=== PATIENT | male | born 1980 | race Caucasian/White ===

== ENCOUNTER → 2018-05-18 14:32 | Outpatient (CLI) | payer OTHER, SELFPAY ==
--- NOTE | 2018-05-18 14:38 | XR_ITS ---
XR shoulder RT min 2V COMPARISON: Right shoulder 08/23/2016 HISTORY: Right shoulder pain after injury at work TECHNIQUE: 3 views right shoulder FINDINGS: The clavicle is intact and the AC joint appears normal. There is minor spurring of the inferior lip of the glenoid and there is mild narrowing of the gallbladder humeral joint. There are no soft tissue calcifications. IMPRESSION: Stable mild osteoarthritic changes of the glenohumeral joint, no significant change from the previous exam July 2016
== END ==
PROVIDERS: PCP Internal Medicine; Visit Provider Internal Medicine
DX: M25.511 Pain in right shoulder (principal)
CPT/HCPCS: 73030

== ENCOUNTER → 2018-05-27 14:42 | Outpatient (CLI) | payer OTHER, SELFPAY ==
--- NOTE | 2018-05-27 14:46 | MR_ITS ---
MR shoulder RT wo con HISTORY: Severe right shoulder pain with limited range of motion ITS.REASON: ABDUCTION OF RIGHT SHOULDER, PAIN ORDERING PHYSICIAN: Richard Love PATIENT AGE: 38 years Comparison: 05/18/2018 TECHNIQUE: Standard multiplanar multiecho sequences are performed without contrast. FINDINGS: Hypertrophic changes are present involving the acromioclavicular joint with edematous changes at the AC joint. The subacromial space is preserved at 7 mm. There is slight increased T2 signal involving the distal aspect of the supraspinatus tendon consistent with tendinopathy/tendinosis. Slight increased T2 signal involving the infraspinatus tendon consistent with tendinopathy/tendinosis. No evidence of rotator cuff tear. The subscapularis and teres minor tendons are intact. No obvious labral tear. Bicipital tendon is in place. No fracture. No significant effusion. IMPRESSION: 1. Acromioclavicular arthropathy with bone marrow edema changes at the AC joint 2. Tendinopathy/tendinosis of the supraspinatus tendon. 3. No evidence of rotator cuff tear or labral tear.
== END ==
PROVIDERS: Family Provider Internal Medicine; PCP Internal Medicine; Visit Provider Internal Medicine
DX: M24.511 Contracture, right shoulder (principal); M25.511 Pain in right shoulder; M25.411 Effusion, right shoulder
CPT/HCPCS: 73221

== ENCOUNTER → 2018-06-11 11:06 | Outpatient (CLI) | payer OTHER, SELFPAY ==
[2018-06-11 11:42] VITALS: PULSE 75
--- NOTE | 2018-06-11 11:57 | XR_ITS ---
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 No CHF. There is coarsening of the bronchovascular markings with mild prominence of the interstitium which may be related to smoking-related lung disease. No lobar consolidation or collapse. No acute bony anomalies. Clips are present in the thyroid region. IMPRESSION: Coarsening of the bronchovascular markings with mild prominence of the interstitium which may be related to smoking-related lung disease with cardiac size upper limits of normal
== END ==
PROVIDERS: Family Provider Internal Medicine; PCP Internal Medicine; Visit Provider Physician Assistant
DX: J45.909 Unspecified asthma, uncomplicated (principal); F17.200 Nicotine dependence, unspecified, uncomplicated; Z02.4 Encounter for examination for driving license
CPT/HCPCS: 71046; 94060; 94640

== ENCOUNTER 2018-06-15 07:00 | Outpatient (RCR) | payer OTHER, SELFPAY ==
--- NOTE | 2018-06-05 11:10 | HMH.OTOPEV ---
OT Inpatient Evaluation Rehab OT Outpatient Eval Start: 06/05/18 09:59 Freq: Status: Active Protocol: Document 06/05/18 09:59 TFRY (Rec: 06/05/18 10:52 TFRY [id number]) Electronically Signed By Yennifer Bates OT 06/05/18 09:59 Outpatient Therapy Subjective History Subjective History THIS IS A 38 YEAR OLD RIGHT HANDED MALE REFERRED TO OCCUPATIONAL THERAPY FOR RIGHT SHOULDER TENDONITIS AND AC ARTHROPATHY. PATIENT REPORTS HURTING HIS SHOULDER ON MAY 14, 2018 WHEN PUTTING UP SWING SET. HE WAS THEN SEEN BY DR SHRESTHA ON 06/01/18/ Chief Complaint Pain Symptom Type Ache Sharp Tingling Symptoms Relieved By Rest/Positioning Symptoms Aggravated By Physical Activity Prior Functional Limitations None Current Functional Limitations Lifting Level of pain today (0-10) 2 Pain scale - at its best (0-10) 0 Pain scale - at its worst (0-10) 6 Shoulder/Elbow Eval Shoulder Objective Measurements Palpation Tenderness tenderness shoulder exam standard right tenderness over the bicipital tendon right shoulder exam standard Shoulder Palpation Findings Tenderness Shoulder ROM Right Shoulder ROM Limitations Pain Shoulder Abduction Active Range of 120 Motion (degrees) Shoulder Abduction Passive Range of 140 Motion (degrees) Shoulder Flexion Active Range of Motion 135 (degrees) Query Text: Shoulder Flexion Passive Range of Motion 150 (degrees) Shoulder External Rotation Active Range 80 of Motion (degrees) Shoulder External Rotation Passive Range 80 of Motion (degrees) Shoulder Internal Rotation Active Range 75 of Motion (degrees) Shoulder Internal Rotation Passive Range 75 of Motion (degrees) pain with active ROM shoulder exam right standard pain with passive ROM shoulder exam right standard decreased ROM shoulder exam standard right Shoulder MMT Shoulder Abduction Strength Grade 3- Fair- Shoulder Flexion Strength Grade 3- Fair- Shoulder Horizontal Abduction Strength 3- Fair- Grade Shoulder Horizontal Adduction Strength 3- Fair- Grade Shoulder External Rotation Strength 3 Fair Grade Shoulder Internal Rotation Strength 3 Fair Grade Shoulder Strength Patient Testing Sitting
== END 2018-07-15 11:33 | disposition home or self-care (01) ==
LOC: OT 07:00
PROVIDERS: Family Provider Internal Medicine; PCP Internal Medicine; Visit Provider Internal Medicine
DX: M75.21 Bicipital tendinitis, right shoulder (principal); M19.011 Primary osteoarthritis, right shoulder
CPT/HCPCS: 97014; 97033; 97110; 97165; G0283

== ENCOUNTER → 2018-10-14 15:16 | Outpatient (CLI) | payer OTHER, SELFPAY | PROVIDERS: PCP Internal Medicine; Visit Provider Internal Medicine | DX: R07.9 Chest pain, unspecified (principal) | CPT/HCPCS: 93005 ==

== ENCOUNTER → 2019-05-10 10:22 | Outpatient (CLI) | payer OTHER, SELFPAY ==
--- NOTE | 2019-05-10 10:29 | XR_ITS ---
XR knee RT 3V HISTORY: ITS.REASON: RT KNEE PAIN ORDERING PHYSICIAN: Richard Love PATIENT AGE: 39 years COMPARISON: 07/22/2008 FINDINGS: There are minimal osteoarthritic changes of the medial compartment. A faint lucency is noted along the lateral tibial plateau laterally which could be due to small osteochondral defect. Otherwise negative. IMPRESSION: Minimal osteoarthritis with possible small osteochondral defect of the lateral tibial plateau
== END ==
PROVIDERS: PCP Internal Medicine; Visit Provider Internal Medicine
DX: M25.561 Pain in right knee (principal)
CPT/HCPCS: 73562

== ENCOUNTER → 2019-05-13 12:46 | Outpatient (CLI) | payer OTHER, SELFPAY ==
--- NOTE | 2019-05-13 12:54 | MR_ITS ---
MR knee RT wo con HISTORY: Medial right knee pain and swelling. Possible osteochondral defect on the radiograph ITS.REASON: RIGHT KNEE PAIN ORDERING PHYSICIAN: Richard Love PATIENT AGE: 39 years Comparison: 05/10/2019 TECHNIQUE: Standard multiplanar multiecho sequences are performed without contrast. FINDINGS: The cruciate ligaments are intact. The collateral ligaments are intact. There may be some minimal edema of the medial collateral ligament centrally. The patellar tendon and quadriceps tendon appear intact. There is a complex tear of the posterior horn of the medial meniscus with both a longitudinal and horizontal component. There is a small amount of fluid signal posterior to the horizontal component representing a small meniscal cyst which measures 3 mm. In addition, there is a longitudinal tear involving the anterior horn of the lateral meniscus toward the central aspect of the meniscus.. This is just lateral to the transverse ligament. There is a small knee joint effusion. The patellar cartilage is well preserved. No obvious fracture. IMPRESSION: 1. Complex tear of the posterior horn the medial meniscus. 2. Longitudinal tear of the anterior horn of lateral meniscus
== END ==
PROVIDERS: PCP Internal Medicine; Visit Provider Internal Medicine
DX: M95.8 Other specified acquired deformities of musculoskeletal system (principal)
CPT/HCPCS: 73721

== ENCOUNTER 2019-05-25 14:57 | Outpatient (RCR) | payer OTHER, SELFPAY | END 2019-05-25 15:15 | disposition home or self-care (01) | LOC: PT 14:57 | PROVIDERS: Visit Provider Orthopaedic Surgery | DX: M25.561 Pain in right knee (principal); M25.461 Effusion, right knee | CPT/HCPCS: 97760 ==

== ENCOUNTER → 2019-08-18 09:07 | Outpatient (CLI) | payer BC, SELFPAY ==
--- NOTE | 2019-08-18 09:17 | XR_ITS ---
PROCEDURE: XR CHEST 2V CLINICAL HISTORY: H/O TOBACCO USE COMPARISON: CXR2V XR chest 2V from 06/11/2018 FINDINGS: There is mild prominence of the left hilum. This may be related to vascularity. Normal heart size. No lobar consolidation or collapse. No acute bony anomaly. IMPRESSION: Slight prominence of the left hilum possibly due to overlying vasculature. Consider follow-up to confirm stability Dictated by: Vinny Ndiaye MD 08/18/2019 11:59 Electronically signed by Vinny Ndiaye MD in [place] 08/18/2019 11:59
[2019-08-18 09:42] LABS: Basophils # 0.1 K/mm3 (0-0.2); Basophils % 0.5 % (0.1-2.0); Eosinophils # 0.2 K/mm3 (0.0-0.4); Eosinophils % 2.2 % (0.1-12.0); Hemoglobin 15.9 g/dL (14.1-18.0); Lymphocytes # 2.8 K/mm3 (0.7-4.5); Lymphocytes % 31.4 % (10-50); Mean Corpuscular HGB Conc 31.8 g/dL (31.8-35.4); Mean Corpuscular Hemoglobin 32.4 pg (27.0-31.2); Mean Corpuscular Volume 101.9 fl (80-94); Mean Platelet Volume 8.4 fl (7.4-10.4); Monocytes # 0.4 K/mm3 (0.1-1.0); Monocytes % 4.3 % (1.7-9.3); Neutrophils # 5.6 K/mm3 (1.8-7.8); Neutrophils % 61.5 % (37.0-80.0); Platelet Count 224 K/mm3 (142-424); Red Blood Count 4.91 M/mm3 (4.60-6.20); White Blood Count 9.1 K/mm3 (4.8-10.8)
[2019-08-18 10:09] LABS: Anion Gap 10.3 mEq/L (5-15); Blood Urea Nitrogen 7 mg/dL (7-18); Calcium 9.1 mg/dL (8.5-10.1); Carbon Dioxide 29 mmol/L (21.0-32.0); Chloride 103 mmol/L (98-107); Creatinine,Serum 1.12 mg/dL (0.70-1.30); Estimated Glomerular Filt Rate 73 ml/min (>60); GFR (African American) 89 ML/MIN (>60); Glucose 120 mg/dL (74-106); Potassium 4.3 mmoL/L (3.5-5.1); Sodium 138 mmol/L (136-145)
== END ==
PROVIDERS: Visit Provider Orthopaedic Surgery
DX: Z01.818 Encounter for other preprocedural examination (principal); S83.242A Other tear of medial meniscus, current injury, left knee, initial encounter; S83.282A Other tear of lateral meniscus, current injury, left knee, initial encounter
CPT/HCPCS: 36415; 71046; 80048; 85025

== ENCOUNTER → 2020-07-10 10:42 | Outpatient (CLI) | payer SELFPAY ==
--- NOTE | 2020-07-10 10:47 | CT_ITS ---
PROCEDURE: CT HEART W CALCIUM SCORE CLINICAL HISTORY: SCREENING COMPARISON: No exams were available for comparison TECHNIQUE: Axial images obtained with sagittal and coronal reformats. All CT scans at the facility use one or more dose reduction, viz: automated exposure control, ma/kV adjustment per patient size (including targeted exams where dose is matched to indication, i.e. head), or iterative reconstruction technique. FINDINGS: The coronary artery calcium score is 0. No identifiable calcific atherosclerotic plaque with very low cardiovascular disease risk Incidental note is made of gynecomastia IMPRESSION: No identifiable calcific atherosclerotic plaque with very low cardiovascular disease risk Dictated by: Vinny Ndiaye MD 07/10/2020 16:27 Vinny Ndiaye MD in [place] 07/10/2020 16:27
== END ==
PROVIDERS: PCP Internal Medicine; Visit Provider Internal Medicine Cardiovascular Disease
DX: F17.210 Nicotine dependence, cigarettes, uncomplicated (principal)
CPT/HCPCS: 75571

== ENCOUNTER → 2020-07-11 06:26 | Outpatient (CLI) | payer BC, SELFPAY ==
--- NOTE | 2020-07-11 06:26 | NM_ITS ---
APPROVED REPORT Exam: Nuclear Stress Test Indication: Chest pain, SOB, Abnormal EKG, High cholesterol, Tobacco use, Family history Patient Location: Outpatient Stress Tech: Destini Llanes PR Tech:Jania Sims, ARRT, RT (R)(N) Ht: 6 ft 4 in Wt: 215 lbs HR: 58 bpm BP: 118/79 mmHg BSA: 2.28 m2 BMI: 26.1 History: Chest pain, SOB, Abnormal EKG, High cholesterol, Tobacco use, Family history Procedure: Patient exercised on Celestine protocol 11:45 minutes and sec, resting heart rate 58 bpm, resting blood pressure 118/79 mmHg, with exercise maximum heart rate achived was 155 bpm which is 86 % of the maximum predicted heart rate and blood pressure was 164/86 mmHg. Test was stopped due to SOA, fatigue and knee pain. Patient has good exercise capacity, achieved 12.8 METs of workload on treadmill, the blood pressure response to exercise was Adequate. Electrocardiogram Resting electrocardiogram showed sinus rhythm, with exercise there is less than 1.[address] segment depression noted from the baseline EKG. The EKG portion of the exercise Myoview is negative for ischemia. Cardiac Stress and Resting SPECT Images: Cardiac Stress and Resting SPECT images were obtained using technetium 99m Myoview 32.4 mCi stress and 10.60 mCi at rest. Gated SPECT for analysis of segmental wall motion and calculation of the ejection fraction also done. Cardiac stress and resting SPECT images show uniform myocardial activity without segmental perfusion abnormality, computer derived ejection fraction is 50% with no regional wall motion abnormality, right ventricle is normal size and contractility. Conclusion: 1. The EKG portion of the exercise Myoview is negative for ischemia. Patient has good exercise capacity achieved 12.8 mets of workload on treadmill, the blood pressure response to exercise was adequate, there was no exercise-induced chest discomfort. 2. No scintigraphic evidence of reversible ischemia seen, computer derived ejection fraction is 50% with no regional wall motion abnormality, right ventricle is normal size and contractility. 3. Normal exercise Myoview study. Electronically signed by : Eulalio Mathur, 07/11/2020 19:32:15
--- NOTE | 2020-07-11 06:26 | CA_ITS ---
APPROVED REPORT Exam: Exercise Treadmill Technologist: Chelita Quintanilla, Ht: 5 ft 4 in Wt: 215 lbs BSA: 2.02 m2 HR: 58 bpm BP: 118/79 mmHg Indications: Abnormal ekg, Shortness of Air Medical History Medications: Levothyroxine,,,,, TorVASTATIN,,,,, Omepazole,,,,, Aspirn,,,,, Stress Test Details Test: Celestine HR Resting HR: 65 bpm Max Heart Rate (APMHR): 181 bpm Max HR Achieved: 155 bpm Target HR (85% APMHR): 153 bpm % of APMHR: 85 Recovery HR: 88 bpm BP Resting BP: 128/79 mmHg Max BP: 164/86 mmHg Recovery BP: 127.0/84.0 mmHg ECG Clinical Exercise duration: 11:45 min Highest Stage Achieved: Exercise capacity: 12.8 METs Stress ECG Conclusion Resting EKG: Sinus urbano, otherwise normal Max HR: 155, % of PM: 86%, Max BP: 164/86, MET's: 12.8, Test stopped due to: SOA, Fatigue, knee pain Symptoms: No change in pretest Chest Pain with exercise Arrhythmias/Ectopy: Rare fusion beat ST-T Changes: Normal ST response to exercise Conclussion: Normal GXT, Myoview images reported separately Test Summary RECOVERY 04:00 0.0 0.0 90 . 131/ 88 . . Stage 1 01:00 10.0 1.7 97 . . . . Stage 1 02:00 10.0 1.7 94 . . . . Stage 1 03:00 10.0 1.7 92 . 134/ 82 . . Stage 2 01:00 12.0 2.5 106 . . . . Stage 2 02:00 12.0 2.5 103 . . . . Stage 2 03:00 12.0 2.5 105 . 146/ 80 . . Stage 3 01:00 14.0 3.4 117 . . . . Stage 3 02:00 14.0 3.4 123 . . . . Stage 3 03:00 14.0 3.4 123 . 164/ 86 . . Stage 4 01:00 16.0 4.2 143 . . . . Stage 4 . . . . . . . Myoview Injected Stage 4 02:00 16.0 4.2 150 . . . . Stage 4 02:45 16.0 4.2 154 . . . Stop exercise at 11:45 RECOVERY 01:00 0.0 0.0 121 . . . . RECOVERY 02:00 0.0 0.0 108 . 130/ 72 . . RECOVERY 03:00 0.0 0.0 98 . 131/ 88 . . RECOVERY 04:00 0.0 0.0 90 . 131/ 88 . . RECOVERY 05:00 0.0 0.0 95 . 127/ 84 . . RECOVERY 05:18 0.0 0.0 89 . 127/ 84 . . Electronically signed by : Eulalio Mathur, 07/11/2020 19:29:36
--- NOTE | 2020-07-11 06:26 | CA_ITS ---
APPROVED REPORT EXAM: Comprehensive 2D, Doppler, and color-flow Echocardiogram Project Management Instructor: Sadaf Poon RDCS Ht: 6 ft 4 in Wt: 215lbs BSA: 2.28 BP: 124/82 mmHg Indications: ABN EKG,SOA SMOKER CP 2D Dimensions LVOT 2.30 cm (M/F) 1.5-2.5 M-Mode Dimensions RVDd 2.59 cm (0.9-2.6) LVDd 6.00 cm (3.5-5.7) LVDs 4.72 cm (3.5-5.7) IVSd 0.67 cm (0.6-1.1) PWd 0.60 cm (0.6-1.1) EF (Teich) 42.60% FS 21.30% EDV (Teich) 180.00 mL ESV (Teich) 103.40 mL LV Diastology E/A Ratio 1.11 Mitral Valve MV A Velocity 44.00 (40-130 cm/s) Left Ventricle Left atrium is normal size, left ventricle is normal size, there is no concentric left ventricular hypertrophy, visually estimated ejection fraction 55% with no regional wall motion abnormality, diastolic parameters are within normal range. Right Ventricle Right atrium and right ventricle are normal size and contractility. Aortic Valve Aortic valve is minimally thickened and fibrosed, there is no aortic stenosis or aortic insufficiency. Mitral Valve Mitral valve is grossly normal, there is mild mitral regurgitation. Tricuspid Valve Tricuspid valve grossly normal, there is mild tricuspid regurgitation, tricuspid regurgitation jet velocity is inadequate for calculation of the right ventricular systolic pressure. Pulmonic Valve Pulmonic valve is poorly visualized. Great Vessels Aortic root is normal size. Pericardium No significant pericardial effusion noted. Conclusion 1. Normal left ventricular size, preserved left ventricular systolic function, visually estimated ejection fraction 55% with no regional wall motion abnormality, diastolic parameters are within normal range. 2. Mild mitral and tricuspid regurgitation. 3. No significant pericardial effusion noted. Electronically signed by : Eulalio Mathur, 07/11/2020 19:16:08
--- NOTE | 2020-07-11 08:27 | HMH.ITSHM ---
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 []ATORVASTATIN LEVOTHYROXINE ASA OMEPRAZOLE
== END ==
PROVIDERS: PCP Internal Medicine; Visit Provider Internal Medicine Cardiovascular Disease
DX: R07.89 Other chest pain (principal); R06.00 Dyspnea, unspecified; R94.31 Abnormal electrocardiogram [ECG] [EKG]; F17.200 Nicotine dependence, unspecified, uncomplicated; Z82.49 Family history of ischemic heart disease and other diseases of the circulatory system
CPT/HCPCS: 78452; 93017; 93306; A9502

== ENCOUNTER → 2021-08-20 10:04 | Outpatient (CLI) | payer BC, SELFPAY ==
--- NOTE | 2021-08-20 10:08 | XR_ITS ---
PROCEDURE: XR CHEST 2V CLINICAL HISTORY: RT MEDIAL CHEST PAIN, COUGH, S/P COVID-19 () COMPARISON: CR CXR2V XR chest 2V from 06/11/2018 DX XR CHEST 2V from 08/18/2019 FINDINGS: Cardiomediastinal silhouette is not enlarged. Left hilum appears stable from prior study. There are vascular clips in the lower neck. The lungs are clear. No pleural effusions. No acute bony abnormalities. IMPRESSION: Stable chest radiograph. Dictated by: Naomie Culver 08/20/2021 11:21 Naomie Culver in [place] 08/20/2021 11:21
== END ==
PROVIDERS: PCP Internal Medicine; Visit Provider Internal Medicine
DX: R07.89 Other chest pain (principal); R05.9 Cough, unspecified; Z86.16 Personal history of COVID-19
CPT/HCPCS: 71046

== ENCOUNTER → 2022-03-20 10:42 | Outpatient (CLI) | payer BC, SELFPAY ==
--- NOTE | 2022-03-20 10:46 | CT_ITS ---
PROCEDURE INFORMATION: Exam: CT Lumbar Spine Without Contrast Exam date and time: 03/20/2022 10:49 AM Age: 41 years old Clinical indication: Low back pain; Additional info: Acute myosascial strain lumbar TECHNIQUE: Imaging protocol: Computed tomography images of the lumbar spine without contrast. Radiation optimization: All CT scans at this facility use at least one of these dose optimization techniques: automated exposure control; mA and/or kV adjustment per patient size (includes targeted exams where dose is matched to clinical indication); or iterative reconstruction. COMPARISON: No relevant prior studies available. FINDINGS: Vertebrae: Mild multilevel spondylosis. Visualized vertebral body heights maintained. Discs/Spinal canal/Neural foramina: Mild disc bulge at L4-L5 and L5-S1. Disc bulge and thickening of the ligamentum flavum at L4-L5 likely causes mild central spinal stenosis. Intraspinal contents are otherwise poorly evaluated. No evidence of high-grade central spinal stenosis. Sacrum/coccyx: Mild arthritic changes of the SI joints, greater on the left. Vasculature: Mild vascular calcifications. Soft tissues: Unremarkable. IMPRESSION: No evidence of an acute fracture or traumatic subluxation.
== END ==
PROVIDERS: PCP Internal Medicine; Visit Provider Internal Medicine
DX: S39.012A Strain of muscle, fascia and tendon of lower back, initial encounter (principal); R20.2 Paresthesia of skin
CPT/HCPCS: 72131

== ENCOUNTER → 2023-01-03 16:56 | Outpatient (CLI) | payer OTHER, SELFPAY ==
[2023-01-03 18:49] LABS: Basophils # 0.1 K/mm3 (0-0.2); Eosinophils # 0.2 K/mm3 (0.0-0.4); Eosinophils % 2.6 % (0.1-12.0); Hematocrit 48.7 % (42.0-52.0); Hemoglobin 16.1 g/dL (14.1-18.0); Lymphocytes # 3.2 K/mm3 (0.7-4.5); Lymphocytes % 35.9 % (10-50); Mean Corpuscular HGB Conc 33.1 g/dL (31.8-35.4); Mean Corpuscular Hemoglobin 31.7 pg (27.0-31.2); Mean Corpuscular Volume 95.8 fl (80-94); Mean Platelet Volume 9.3 fl (7.4-10.4); Monocytes # 0.6 K/mm3 (0.1-1.0); Monocytes % 7.1 % (1.7-9.3); Neutrophils # 4.8 K/mm3 (1.8-7.8); Neutrophils % 53.4 % (37.0-80.0); Platelet Count 263 K/mm3 (142-424); Red Blood Count 5.08 M/mm3 (4.60-6.20); Red Cell Distribution Width 13.4 % (11.5-17.5)
[2023-01-03 19:45] LABS: Chloride 103 mmol/L (98-107); Potassium 4.6 mmoL/L (3.5-5.1); Sodium 136 mmol/L (136-145)
[2023-01-03 19:47] LABS: Alanine Aminotransferase 41 U/L (12-78); Aspartate Amino Transferase 31 U/L (17-59); Blood Urea Nitrogen 11 mg/dl (9-20); Estimated Glomerular Filt Rate 82 ml/min (>60); GFR (African American) 100 ML/MIN (>60)
[2023-01-03 19:48] LABS: Albumin/Globulin Ratio 1.5 (1.1-1.8); Alkaline Phosphatase 100 U/L (38-126); Anion Gap 11.6 mEq/L (5-15); Bilirubin,Total 0.2 mg/dl (0.2-1.3); Calcium 8.6 mg/dl (8.4-10.2); Carbon Dioxide 26 mmol/L (22.0-30.0); Chol/HDL Ratio 5.2 (1-3.5); Cholesterol 176 mg/dl (140-200); Globulin 2.6 g/dL (1.3-3.2); Glucose 81 mg/dl (74-100); HDL Cholesterol 34 mg/dl (40-60); Total Protein,Serum 6.6 g/dl (6.3-8.2); Triglycerides 321 mg/dl (30-150); VLDL Cholesterol 64 mg/dL (0-40)
[2023-01-03 19:59] LABS: Direct LDL Cholesterol 110.34 mg/dL (100-129)
[2023-01-03 20:02] LABS: Free T4 (Free Thyroxine) 1.75 ng/dl (0.78-2.19)
[2023-01-03 20:17] LABS: Thyroid Stimulating Hormone 0.96 uIU/mL (0.465-4.68)
== END ==
PROVIDERS: PCP Internal Medicine; Visit Provider Internal Medicine
DX: E03.9 Hypothyroidism, unspecified (principal); E05.00 Thyrotoxicosis with diffuse goiter without thyrotoxic crisis or storm; E78.5 Hyperlipidemia, unspecified; Z86.39 Personal history of other endocrine, nutritional and metabolic disease
CPT/HCPCS: 80053; 80061; 84439; 84443; 85025

== ENCOUNTER → 2023-03-10 17:01 | Outpatient (CLI) | payer OTHER, SELFPAY ==
[2023-03-10 18:05] LABS: Basophils % 0.5 % (0.1-2.0); Eosinophils # 0.3 K/mm3 (0.0-0.4); Eosinophils % 3.4 % (0.1-12.0); Hematocrit 46.8 % (42.0-52.0); Hemoglobin 15.7 g/dL (14.1-18.0); Lymphocytes # 2.9 K/mm3 (0.7-4.5); Lymphocytes % 35.6 % (10-50); Mean Corpuscular HGB Conc 33.6 g/dL (31.8-35.4); Mean Corpuscular Hemoglobin 31.1 pg (27.0-31.2); Mean Corpuscular Volume 92.3 fl (80-94); Mean Platelet Volume 8.9 fl (7.4-10.4); Monocytes # 0.5 K/mm3 (0.1-1.0); Monocytes % 6.8 % (1.7-9.3); Neutrophils # 4.3 K/mm3 (1.8-7.8); Neutrophils % 53.7 % (37.0-80.0); Platelet Count 261 K/mm3 (142-424); Red Blood Count 5.07 M/mm3 (4.60-6.20)
[2023-03-10 18:21] LABS: Alanine Aminotransferase 144 U/L (12-78); Albumin Level 3.9 g/dl (3.5-5.0); Albumin/Globulin Ratio 1.4 (1.1-1.8); Alkaline Phosphatase 114 U/L (38-126); Anion Gap 17.2 mEq/L (5-15); Aspartate Amino Transferase 67 U/L (17-59); Bilirubin,Total 0.6 mg/dl (0.2-1.3); Blood Urea Nitrogen 7 mg/dl (9-20); Carbon Dioxide 27 mmol/L (22.0-30.0); Chloride 96 mmol/L (98-107); Creatine Kinase 47 U/L (55-170); Estimated Glomerular Filt Rate 82 ml/min (>60); GFR (African American) 100 ML/MIN (>60); Globulin 2.7 g/dL (1.3-3.2); Glucose 88 mg/dl (74-100); Magnesium 1.9 mg/dl (1.6-2.3); Potassium 4.2 mmoL/L (3.5-5.1); Sodium 136 mmol/L (136-145); Total Protein,Serum 6.6 g/dl (6.3-8.2)
[2023-03-10 18:38] LABS: Free T4 (Free Thyroxine) 1.93 ng/dl (0.78-2.19)
[2023-03-10 18:44] LABS: Erythrocyte Sedimentation Rate 13 mm/hr (0-15)
[2023-03-10 18:53] LABS: Thyroid Stimulating Hormone < 0.02 uIU/mL (0.465-4.68)
== END ==
PROVIDERS: PCP Internal Medicine; Visit Provider Internal Medicine
DX: E78.5 Hyperlipidemia, unspecified (principal); E03.9 Hypothyroidism, unspecified; M79.10 Myalgia, unspecified site; R20.2 Paresthesia of skin
CPT/HCPCS: 80053; 82550; 83735; 84439; 84443; 85025; 85651

== ENCOUNTER → 2023-04-09 14:38 | Outpatient (CLI) | payer OTHER, SELFPAY ==
--- NOTE | 2023-04-09 14:42 | XR_ITS ---
FINAL REPORT CLINICAL HISTORY: RT KNEE PAIN,EFFUSION RT KNEE COMPARISON: None FINDINGS: Three views of the right knee reveal no evidence of fracture or dislocation. The bony alignment is normal. The joint spaces are preserved. There is no evidence of joint effusion. No localized soft tissue abnormality is identified. IMPRESSION: No acute abnormality identified. Reviewed, Interpreted and Dictated by Erick Watt III, MD Transcribed by Lynne Carr Authenticated and [facility]
== END ==
PROVIDERS: PCP Internal Medicine; Visit Provider Internal Medicine
DX: M25.561 Pain in right knee (principal); M25.461 Effusion, right knee
CPT/HCPCS: 73562

== ENCOUNTER → 2023-05-08 15:50 | Outpatient (CLI) | payer OTHER, SELFPAY ==
--- NOTE | 2023-05-08 15:51 | MR_ITS ---
PROCEDURE INFORMATION: Exam: MR Right Lower Extremity Joint Without Contrast, Knee Exam date and time: 05/08/2023 4:01 PM Age: 43 years old Clinical indication: Pain; Knee; Right; Additional info: RT knee pain TECHNIQUE: Imaging protocol: Magnetic resonance imaging of the right lower extremity joint without contrast. Exam focused on the knee. COMPARISON: FINDINGS: Bones/joints: No acute fracture. No dislocation. Probable early ganglion cyst formation along tibial spine. Trace subchondral edema along posterior aspect of medial femoral condyle. Fluid: No significant joint effusion. Tiny Pena's cyst. 2.2 x 1.6 x 1.0 cm parameniscal cyst along anterolateral knee joint. Medial meniscus: Truncation of posterior horn of medial meniscus. Lateral meniscus: Complex tear of anterior horn of lateral meniscus. Anterior cruciate ligament: Increased signal along ligament with mild cystic changes about proximal fibers. Posterior cruciate ligament: Intact. Medial capsule and supporting structures: Intact. Lateral capsule and supporting structures: Intact. Extensor mechanism of knee: Intact. Soft tissues: Unremarkable. IMPRESSION: 1. Prior medial meniscectomy. 2. Lateral meniscus tear with associated parameniscal cyst. 3. Probable mucoid degeneration of anterior cruciate ligament. Superimposed sprain not excluded.
== END ==
PROVIDERS: PCP Internal Medicine; Visit Provider Orthopaedic Surgery
DX: M25.561 Pain in right knee (principal); M23.91 Unspecified internal derangement of right knee
CPT/HCPCS: 73721

== ENCOUNTER → 2023-05-27 07:44 | Outpatient (CLI) | payer OTHER, SELFPAY ==
--- NOTE | 2023-05-27 07:52 | ECG_ITS ---
APPROVED REPORT Violin Maker Hand: Conclusion 1. SINUS BRADYCARDIA 2. BORDERLINE ECG 3. UNCONFIRMED REPORT Electronically signed by : Jemima Guerra, 05/30/2023 12:17:02
--- NOTE | 2023-05-27 08:04 | XR_ITS ---
FINAL REPORT CLINICAL HISTORY: smoker COMPARISON: 08/20/2021 FINDINGS: Two views of the chest were obtained. The heart size and pulmonary vascularity are within normal limits. The mediastinum is normal. No acute pulmonary abnormality is identified. There is no pneumothorax. The bony thorax is intact. There are postoperative changes at the base of the neck. IMPRESSION: No active cardiopulmonary disease. Reviewed, Interpreted and Dictated by Erick Watt III, MD Transcribed by Theresa Grajeda Authenticated and [facility]
[2023-05-27 08:08] LABS: Basophils # 0.1 K/mm3 (0-0.2); Basophils % 0.6 % (0.1-2.0); Eosinophils # 0.4 K/mm3 (0.0-0.4); Hematocrit 50.8 % (42.0-52.0); Hemoglobin 16.1 g/dL (14.1-18.0); Lymphocytes # 2.6 K/mm3 (0.7-4.5); Lymphocytes % 29.8 % (10-50); Mean Corpuscular HGB Conc 31.7 g/dL (31.8-35.4); Mean Corpuscular Hemoglobin 29.2 pg (27.0-31.2); Mean Corpuscular Volume 92.1 fl (80-94); Mean Platelet Volume 8.5 fl (7.4-10.4); Monocytes # 0.3 K/mm3 (0.1-1.0); Monocytes % 3.6 % (1.7-9.3); Neutrophils # 5.4 K/mm3 (1.8-7.8); Platelet Count 237 K/mm3 (142-424); Red Blood Count 5.52 M/mm3 (4.60-6.20); Red Cell Distribution Width 13.6 % (11.5-17.5); White Blood Count 8.7 K/mm3 (4.8-10.8)
[2023-05-27 08:31] LABS: Chloride 104 mmol/L (98-107); Potassium 3.4 mmoL/L (3.5-5.1); Sodium 139 mmol/L (136-145)
[2023-05-27 08:33] LABS: Alanine Aminotransferase 35 U/L (12-78); Anion Gap 9.4 mEq/L (5-15); Aspartate Amino Transferase 30 U/L (17-59); Blood Urea Nitrogen 7 mg/dl (9-20); Carbon Dioxide 29 mmol/L (22.0-30.0); Estimated Glomerular Filt Rate 93 ml/min (>60); GFR (African American) 112 ML/MIN (>60)
[2023-05-27 08:34] LABS: Albumin Level 3.7 g/dl (3.5-5.0); Albumin/Globulin Ratio 1.2 (1.1-1.8); Alkaline Phosphatase 106 U/L (38-126); Bilirubin,Total 0.6 mg/dl (0.2-1.3); Calcium 9.1 mg/dl (8.4-10.2); Glucose 121 mg/dl (74-100); Total Protein,Serum 6.7 g/dl (6.3-8.2)
== END ==
PROVIDERS: PCP Internal Medicine; Visit Provider Orthopaedic Surgery
DX: Z01.818 Encounter for other preprocedural examination (principal); M23.006 Cystic meniscus, unspecified meniscus, right knee
CPT/HCPCS: 36415; 71046; 80053; 85025; 93005

== ENCOUNTER 2023-06-02 06:13 | Day surgery (SDC) | payer OTHER, SELFPAY ==
[2023-05-29 10:37] VITALS: BMI 26.7
[2023-06-02] VITALS (12 sets, daily range): BP systolic 121–144; BP diastolic 75–94; PULSE 60–84; RESP 17–24; TEMP 36.3–43; O2SAT 93–99
--- NOTE | 2023-06-02 06:52 | P.PNANES_ITS ---
[facility] Disclaimer: The information contained in this section may have been updated after the patient was seen, as this information can be updated by other users. Medical History Abnormal EKG Chest pain Dyspnea Family history of heart disease Tobacco dependence syndrome Surgical History Hx of arthroscopy of right knee Family History Other Family history of cancer Family history of myocardial infarction Social History Smoking Status: Current every day smoker alcohol intake: never substance use type: unknown current occupational status: employed Travel in the last 8 weeks: None household members: spouse and children housing: house lives independently: No marital status: number of children: 3 education level: high school service: No correction: No current occupation: [employer] current occupational exposures/hazards: No caffeine: Yes special cornel needs: No agree to transfusion: No do you feel safe at home: Yes victim of physical abuse: No victim of emotional abuse: No victim of sexual abuse: No would you like helpful sources: No [facility] Anesthesia Checklist Patient Identification Patient Identification: Arm Band and Family Structural Data Admitted From: Home Planned Operative Procedure/s: Right Knee ATS with Meniscal repair, and Cyst excision. Consent for Planned Operative Procedure(s) Verified: Yes Verified Documents: Surgical Consent and History and Physical NPO Status Verified Time NPO: 05:00 Additional verifications Patient : No Anesthesia Reactions: No Hx Blood Transfusions: No Blood Transfusion Reaction: No Cephalosporin Allergy: Yes Previous Colonoscopy: No Airway Assessment Mallampati Score:: Class II C-Spine Mobility Assessed: Yes TMJ Mobility Assessed: Yes Dentition: Good Dentition Neurological Assessment Level of Consciousness: Awake, Alert, Appropriate and Follows Commands Hx Seizures: No Numbness or tingling in extremities: No Anesthesia Plan Anesthesia Risk discussed: Yes ASA Class: II Anesthesia Type: General Preoperative Comments Pre-Operative Comments: History of total thyroidectomy for Graves Disease 15 years ago. Drank less than one glass of water at 0500. Previous Knee surgery. History of Asthma.
--- NOTE | 2023-06-02 08:25 | P.OP_ITS ---
Date of procedure: 06/02/23 Pre-op Diagnosis:: Right knee lateral meniscus tear parameniscal cyst Post-op Diagnosis:: Right knee lateral meniscus tear with medial meniscus tear and parameniscal cyst lateral Procedure performed:: Right knee arthroscopy with partial medial lateral meniscectomy Right knee arthroscopy with debridement parameniscal cyst Surgeon:: Abbe Schaefer DO DIRECTOR PERIOPERATIVE:: Other Anesthesia: GETA Estimated blood loss (mL): 0 Operative findings:: Large complex tear anterior horn body lateral meniscus with parameniscal cyst and also horizontal tear body posterior horn medial meniscus through previous meniscectomy Operative note:: Patient was identified preoperatively. Right knee marked with a yes my initials. Transported operative suite. Placed upon the operating bed. General anesthesia administered airway secured. Right lower extremity prepped and draped in normal sterile fashion. Once prepped and draped final operative timeout performed to identify proper patient procedure and extremity. Everyone involved the case agree. No contraindications to beginning. He did receive preoperative antibiotics with clindamycin. Marking pen used to santos the bony landmarks of the knee and standard portal sites. Esmarch was used to exsanguinate the extremity. Pneumatic tourniquet inflated to 300 mmHg. Skin knife is used to incise to standard anterior lateral portal. Blunt trocar was placed in patellofemoral joint. Swept directly into the medial joint line where the anterior medial portal was made. This was exchanged with a probe. Upon probing the area of previous meniscectomy in the posterior horn of the medial meniscus there was a new horizontal tear within the posterior horn of the medial meniscus. Using a combination of straight biter and sucker shaver partial medial meniscectomy was performed back to stable rim. Attention was then brought into the intercondylar notch the ACL was seen and intact. Attention was then brought to the lateral joint line within the lateral joint line there is a large complex tear of the anterior horn and the body of the lateral meniscus with parameniscal cyst suction was placed on the sucker shaver to debride the parameniscal cyst and then using a combination of straight biter sucker shaver and electrocautery possible lateral meniscectomy was performed back to stable rim. I looked into the medial and lateral gutters. And in the patellofemoral joint. No further pathology was seen. Camera was removed. Joint was drained. Skin was closed with nylon stitch. Sterile dressing placed from toe to thigh. Patient waken anesthesia taken recovery in stable condition. Tourniquet time (min): 20 Condition: stable Disposition: PACU Complications:: None apparent
--- NOTE | 2023-06-02 08:32 | EXP.ANES.I ---
[facility] Anesthesia Record Part I Anesthesia Record I Intake, IV Amount: 900 Hydration:: Adequate Estimated blood loss (mL): 40 Urine output (mL): 0 Blood Products used (#): none Blood Pressure: 144/94 SaO2: 94 Pulse Rate: 84 Airway Patency:: Patent Respiratory Rate: 24 Temperature: 97.7 F Pain scale (0-10): 1 Nausea:: No Vomiting:: No Patient is:: Drowsy and Stable Stable to PACU at:: 08:25
--- NOTE | 2023-06-02 09:44 | EXP.ANES.I ---
[facility] Anesthesia Record Part I Anesthesia Record I Intake, IV Amount: 700 Hydration: Adequate Estimated blood loss (mL): 40 Urine output (mL): 0 Blood Products used (#): none Blood Pressure: 134/77 SaO2: 94 Pulse Rate: 75 Airway Patency: Patent Respiratory Rate: 18 Temperature: 97.3 F Pain scale (0-10): 0 Nausea: No Vomiting: No Patient is:: Drowsy and Stable Stable to PACU at:: 09:42
--- NOTE | 2023-06-02 13:38 | EXP.ANES.II ---
[facility] Anesthesia Record Part II Anesthesia Record Part II Discharge Time: 08:55 Destination: Surgical Day Care (OP Surgery) PACU nurse assessment reviewed?: Yes Patient Condition:: Good Anesthesia Complications:: None Swallowing reflex intact?: Yes Airway Patency: Patent Cyanosis?: No Blood Pressure: 133/89 SaO2: 94 Respiratory Rate: 18 Pulse Rate: 74 Temperature: 98.2 F Mental Status: Alert & Oriented Pain level:: 4 Nausea and/or vomitting:: None Intake, IV Amount: 0 Hydration: Adequate
== END 2023-06-02 09:26 | disposition home or self-care (01) ==
PROVIDERS: PCP Internal Medicine; Visit Provider Orthopaedic Surgery
PROC: (CPT 29870; principal; 2023-06-02 07:30)
DX: S83.281A Other tear of lateral meniscus, current injury, right knee, initial encounter (principal); S83.241A Other tear of medial meniscus, current injury, right knee, initial encounter; Z79.899 Other long term (current) drug therapy
CPT/HCPCS: 29880; 27347; 96374; J2405

== ENCOUNTER → 2023-07-09 17:02 | Outpatient (CLI) | payer OTHER, SELFPAY ==
[2023-07-09 18:07] LABS: Alanine Aminotransferase 23 U/L (12-78); Albumin Level 3.9 g/dl (3.5-5.0); Albumin/Globulin Ratio 1.5 (1.1-1.8); Alkaline Phosphatase 93 U/L (38-126); Anion Gap 11.9 mEq/L (5-15); Aspartate Amino Transferase 27 U/L (17-59); Bilirubin,Total 0.2 mg/dl (0.2-1.3); Blood Urea Nitrogen 8 mg/dl (9-20); Calcium 8.3 mg/dl (8.4-10.2); Carbon Dioxide 26 mmol/L (22.0-30.0); Chloride 104 mmol/L (98-107); Chol/HDL Ratio 3.9 (1-3.5); Cholesterol 136 mg/dl (140-200); Estimated Glomerular Filt Rate 93 ml/min (>60); GFR (African American) 112 ML/MIN (>60); Globulin 2.6 g/dL (1.3-3.2); Glucose 91 mg/dl (74-100); HDL Cholesterol 35 mg/dl (40-60); Potassium 3.9 mmoL/L (3.5-5.1); Sodium 138 mmol/L (136-145); Total Protein,Serum 6.5 g/dl (6.3-8.2); Triglycerides 217 mg/dl (30-150); VLDL Cholesterol 43 mg/dL (0-40)
[2023-07-09 20:02] LABS: Direct LDL Cholesterol 75.16 mg/dL (100-129)
== END ==
PROVIDERS: PCP Internal Medicine; Visit Provider Internal Medicine
DX: E03.9 Hypothyroidism, unspecified (principal); E78.5 Hyperlipidemia, unspecified; Z86.39 Personal history of other endocrine, nutritional and metabolic disease
CPT/HCPCS: 80053; 80061; 84443

== ENCOUNTER → 2023-08-29 14:38 | Outpatient (CLI) | payer OTHER, SELFPAY ==
--- NOTE | 2023-08-29 14:46 | XR_ITS ---
FINAL REPORT CLINICAL HISTORY: LBP COMPARISON: None FINDINGS: 5 views of the lumbar spine were obtained. There is no evidence of fracture or dislocation. The vertebral alignment is normal. There is mild degenerative change with several osteophytes noted. No paraspinous soft tissue abnormalities identified. IMPRESSION: No acute bony abnormality. Mild degenerative change. Reviewed, Interpreted and Dictated by Erick Watt III, MD Transcribed by Kerrie White Authenticated and . [facility]
== END ==
PROVIDERS: PCP Internal Medicine; Visit Provider Internal Medicine
DX: M54.50 Low back pain, unspecified (principal)
CPT/HCPCS: 72110

== ENCOUNTER → 2023-09-27 10:44 | Outpatient (CLI) | payer OTHER, SELFPAY ==
--- NOTE | 2023-09-27 10:48 | MR_ITS ---
PROCEDURE INFORMATION: Exam: MR Lumbar Spine Without Contrast Exam date and time: 09/27/2023 10:40 AM Age: 43 years old Clinical indication: Patient HX: Low back pain, sacral strain; Additional info: Lumbar sacral strain TECHNIQUE: Imaging protocol: Magnetic resonance imaging of the lumbar spine without contrast. COMPARISON: CT LUMBAR SPINE WO CON 03/20/2022 10:49 AM FINDINGS: Bones/joints: The alignment is anatomic. The vertebral body heights are maintained. No suspicious marrow signal. Disc desiccation without significant loss of height at L4-L5. Unchanged mild left SI joint arthrosis. Spinal cord: Visualized cord, conus medullaris and cauda equina are unremarkable without compression. Fatty filum terminale. L1-L2: No significant disc bulge or herniation. No severe spinal canal stenosis. No significant neural foraminal narrowing. L2-L3: No significant disc bulge or herniation. No severe spinal canal stenosis. No significant neural foraminal narrowing. L3-L4: L3-L4 minimal eccentric right foraminal zone focal disc protrusion is seen without stenosis of the spinal canal. There is minimal arthrosis of the facets on both sides without significant neural foraminal narrowing. L4-L5: L4-L5 diffuse disc bulging and degenerative facet arthrosis is seen with mild stenosis of the spinal canal. There is no significant neural foraminal narrowing present this appears similar to the comparison CT scan. L5-S1: L5-S1 the spinal canal is patent. There is minimal bilateral facet arthrosis with patent neural foramina. Soft tissues: Unremarkable. IMPRESSION: Degenerative disc disease with mild stenosis of the spinal canal at L4-L5, as described.
== END ==
PROVIDERS: PCP Internal Medicine; Visit Provider Internal Medicine
DX: M54.50 Low back pain, unspecified (principal); S39.012D Strain of muscle, fascia and tendon of lower back, subsequent encounter
CPT/HCPCS: 72148; 76376

== ENCOUNTER 2023-10-14 08:00 | Outpatient (RCR) | payer OTHER, SELFPAY ==
--- NOTE | 2023-09-09 17:00 | HMH.PTOPEV ---
PT Outpatient Evaluation Rehab PT Outpatient Evaluation Start: 09/09/23 16:20 Freq: Status: Active Protocol: Document 09/09/23 16:20 ASHOK (Rec: 09/09/23 16:52 ASHOK [id number]) E-signed By Leobardo Little, PT Outpatient Therapy Subjective History Subjective History Patient is a 43 year old male presenting to outpatient PT with reports of acute LBP with intermittent radiating pain to B anterior thighs not past the knees. This is a workmans compensation case. 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 Patient reports that he felt a pop prior to onset of LBP. Most recent imaging indicates mild degenerative changes. SI special tests negative. No relief or exacerbation of symptoms noted with lumbar extension. Patient unable to tolerate manual traction. Patient was prescribed oral steriods which have provided some relief. Comorbidities include hx of R knee arthroscopic sx x 2. New diagnosis of cancer in past 12 No months? Chief Complaint Pain,Spasms,Stiff,Paresthesia Symptom Type Ache,Stabbing,Numbness Symptoms Relieved By Rest/Positioning,Heat,Ice, Prescription Meds Symptoms Aggravated By Sitting,Bending/Stooping, Physical Activity,Lifting Prior Functional Limitations None Current Functional Limitations Lifting,Housework,Sitting, Squatting,Bending/Stooping Symptom Description Constant but Variable Level of pain today (0-10) 4 Pain scale - at its best (0-10) 2 Pain scale - at its worst (0-10) 10 Lumbopelvic Eval Posture Thoracic Spine Posture Standing Position Neutral Lumbar Spine Posture Standing Position Decreased Lordosis Assistive device Assistive Devices None / NA Palapation tenderness bilateral lumbar spinal tenderness Yes: L4-S1 3/4 Lumbar/Sacral Palpation Findings Tenderness Accessory Movement L4 bilateral L5 bilateral S1 bilateral Range of Motion Lumbar Spine Active Flexion Range of 27 Motion (degrees) Lumbar Spine Active Extension Range of 8 Motion (degrees) Left Lumbar Spine Lateral Flexion Active 30 Range of Motion (degrees) Right Lumbar Spine Lateral Flexion 28 Active Range of Motion (degrees) Lumbar Spine ROM Limitations Soft Tissue Tightness,Bony Restriction Manual Muscle Test Bilateral Knee Extension Strength Grade 5 Normal Knee Flexion Strength Grade 5 Normal Hip Flexion Strength Grade 5 Normal Extensor Hallucis Longus Strength Grade 5 Normal Ankle Dorsiflexion Strength Grade 5 Normal Gastronemius/Soleus Strength Grade 5 Normal Altered Sensation LE Dermatome Level L3,L4 Comment intermittent numbness Special Tests Lumbar Spine Screen Positive Hip Teofilo (FRANK) Test Positive Left,Positive Right Hip Martinez Test Positive Left,Positive Right Hip Piriformis Test Positive Left,Positive Right Sciatic Nerve Tension Test Positive Left,Positive Right Kevin Test Positive Sacroiliac Joint Compression Test Negative Left,Negative Right Sacroiliac Joint Distraction Test Negative Left,Negative Right Lumbar Long [place] Distraction Test/Manual Negative Traction Oswestry Index Section 1 Pain Intensity The pain is moderate and does not vary much Section 2 Personal Care (Washing,Dresing) change my way of washing or dressing in order to avoid pain Section 3 Lifting lifting heavy weights off the floor, but I can manage light to medium Section 4 Walking I have some pain when walking but it does not increase with distance Section 5 Sitting I can sit in any chair for as long as I like Section 6 Standing I have some pain on standing, but it does not increase with time Section 7 Sleeping I get pain in bed, but it does not prevent me from sleeping well Section 8 Social Life My social life is normal but increases the degree of pain Section 9 Traveling I get some pain when traveling , but none of my usual forms of travel m Section 10 Changing Degreee of Pain My pain is neither getting better or worse Score and Risk Level Oswestry Sc 15 Oswestry Risk Level Moderate Disability Outpatient Therapy Assessment Impairments Problems/Impairmments Palpation Tenderness,Impaired Range of Motion,Impaired Strength,Impaired Walking, Impaired Standing,Impaired Lifting,Impaired Household Care,Impaired Squatting, Impaired Bending,Impaired Recreational Activities, Impaired Work Activities, Subjective C/O Pain Prognosis Rehab Potential Good Clinical Impression Consistent with Diagnosis Yes Short Term Goals Number of Weeks 2 Decrease Subjective C/O Pain Yes: 5/10 at worst 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 Number of Weeks 4-6 Decreased Palpation Tenderness Yes: 1/4 Increase Range of Motion Yes: WNL Increase Strength Yes: Core stabilizers 5/5 Increase Ability to Walk Yes: 1 hr without difficulty Increase Ability to Stand Yes: Improve Tolerance to Work Activities Yes: WNL Improve Oswestry Score Yes: mild disabililty Outpatient Therapy Plan of Care Treatment Plan May Include Therapeutic Exercise Including Home Yes Exercise Program Manual Therapy Techniques Yes Neuromuscular Re-education Yes Therapeutic Activities to Return to Yes Previous Functional/Work Level Gait Training Yes ADL/Self Care Education Yes Mechanical Traction Yes Dry Needling Yes Thermal Modalities Yes Electrical Stimulation Yes Ultrasound/Phonophoresis Yes Iontophoresis Yes Orthotics/Bracing/Splinting Yes Vasopneumatic Compression Pump Yes Massage Yes Eval/Re-Eval Yes Frequency Times per week 2 Duration Number of Weeks 4-6 Addendums This patient is a candidate for social No or vocational rehab? Patient/Guardian verbally acknowledges Yes understanding of treatment program and consents to further treatment? Patient/Guardian verbally acknowledges Yes understanding of diagnosis, prognosis and goals for treatment? Eval Complexity PT Charges 24529 - Moderate Complexity Shoulder/Elbow Eval Shoulder Objective Measurements Elbow Objective Measurements PHYSICIAN CERTIFICATION: I certify the specified therapy services for Tay Layton are required, authorized, and reviewed every 30 days.
== END 2023-10-14 09:00 | disposition home or self-care (01) ==
LOC: PT 08:00
PROVIDERS: Visit Provider Internal Medicine
DX: M54.41 Lumbago with sciatica, right side (principal); M54.42 Lumbago with sciatica, left side; M54.50 Low back pain, unspecified
CPT/HCPCS: 97010; 97012; 97014; 97035; 97110; 97163; G0283

== ENCOUNTER 2024-03-19 11:21 | Outpatient (CLI) | payer OTHER, SELFPAY ==
[2024-03-19 11:42] LABS: Basophils # 0.1 K/mm3 (0-0.2); Basophils % 0.9 % (0.1-2.0); Eosinophils # 0.2 K/mm3 (0.0-0.4); Eosinophils % 2.2 % (0.1-12.0); Hematocrit 49.8 % (42.0-52.0); Hemoglobin 16.4 g/dL (14.1-18.0); Lymphocytes # 2.9 K/mm3 (0.7-4.5); Lymphocytes % 42.3 % (10-50); Mean Corpuscular Hemoglobin 32.7 pg (27.0-31.2); Mean Corpuscular Volume 98.9 fl (80-94); Mean Platelet Volume 9.5 fl (7.4-10.4); Monocytes # 0.6 K/mm3 (0.1-1.0); Monocytes % 8.4 % (1.7-9.3); Neutrophils # 3.1 K/mm3 (1.8-7.8); Neutrophils % 46.1 % (37.0-80.0); Platelet Count 208 K/mm3 (142-424); Red Blood Count 5.03 M/mm3 (4.60-6.20); Red Cell Distribution Width 13.2 % (11.5-17.5); White Blood Count 6.7 K/mm3 (4.8-10.8)
[2024-03-19 11:55] LABS: Alanine Aminotransferase 24 U/L (12-78); Albumin Level 3.9 g/dl (3.5-5.0); Albumin/Globulin Ratio 1.4 (1.1-1.8); Alkaline Phosphatase 94 U/L (38-126); Anion Gap 11.4 mEq/L (5-15); Aspartate Amino Transferase 22 U/L (17-59); Bilirubin,Total 0.4 mg/dl (0.2-1.3); Blood Urea Nitrogen 9 mg/dl (9-20); Calcium 9.2 mg/dl (8.4-10.2); Carbon Dioxide 29 mmol/L (22.0-30.0); Chloride 102 mmol/L (98-107); Chol/HDL Ratio 3.3 (1-3.5); Cholesterol 138 mg/dl (140-200); Creatine Kinase 38 U/L (55-170); Estimated Glomerular Filt Rate 82 ml/min (>60); GFR (African American) 99 ML/MIN (>60); Globulin 2.8 g/dL (1.3-3.2); Glucose 93 mg/dl (74-100); HDL Cholesterol 42 mg/dl (40-60); Potassium 4.4 mmoL/L (3.5-5.1); Sodium 138 mmol/L (136-145); Total Protein,Serum 6.7 g/dl (6.3-8.2); Triglycerides 80 mg/dl (30-150); VLDL Cholesterol 16 mg/dL (0-40)
[2024-03-19 12:12] LABS: Free T4 (Free Thyroxine) 1.82 ng/dl (0.78-2.19)
[2024-03-19 12:29] LABS: Thyroid Stimulating Hormone 0.17 uIU/mL (0.465-4.68)
[2024-03-19 12:55] LABS: Erythrocyte Sedimentation Rate 13 mm/hr (0-15)
[2024-03-19 13:05] LABS: Vitamin B12 437 pg/mL (239-931)
[2024-03-23 14:22] LABS: Albumin 3.6 g/dL (2.9-4.4); Alpha-1-Globulin 0.3 g/dL (0.0-0.4); Alpha-2-Globulin 0.7 g/dL (0.4-1.0); Gamma Globulin 1.1 g/dL (0.4-1.8); Protein, Total 6.6 g/dL (6.0-8.5)
[2024-03-28 08:14] LABS: PDF SCANNED IMAGE
== END 2024-03-19 23:59 | disposition home or self-care (01) ==
PROVIDERS: PCP Internal Medicine; Visit Provider Internal Medicine
DX: E03.9 Hypothyroidism, unspecified (principal); R20.2 Paresthesia of skin; G60.9 Hereditary and idiopathic neuropathy, unspecified; M79.10 Myalgia, unspecified site; E78.5 Hyperlipidemia, unspecified; F17.209 Nicotine dependence, unspecified, with unspecified nicotine-induced disorders; Z68.27 Body mass index [BMI] 27.0-27.9, adult; Z86.39 Personal history of other endocrine, nutritional and metabolic disease
CPT/HCPCS: 80053; 80061; 82550; 82607; 82746; 84155; 84165; 84439; 84443; 85025; 85651

== ENCOUNTER 2024-05-27 17:30 | Outpatient (CLI) | payer OTHER, SELFPAY ==
[2024-05-27 17:11] LABS: Basophils # 0.1 K/mm3 (0-0.2); Basophils % 0.7 % (0.1-2.0); Eosinophils # 0.3 K/mm3 (0.0-0.4); Eosinophils % 3.6 % (0.1-12.0); Hematocrit 48.6 % (42.0-52.0); Hemoglobin 16.3 g/dL (14.1-18.0); Lymphocytes # 3.7 K/mm3 (0.7-4.5); Lymphocytes % 39.6 % (10-50); Mean Corpuscular HGB Conc 33.6 g/dL (31.8-35.4); Mean Corpuscular Hemoglobin 32.1 pg (27.0-31.2); Mean Corpuscular Volume 95.4 fl (80-94); Mean Platelet Volume 8.6 fl (7.4-10.4); Monocytes # 0.4 K/mm3 (0.1-1.0); Neutrophils # 4.9 K/mm3 (1.8-7.8); Neutrophils % 52.1 % (37.0-80.0); Platelet Count 215 K/mm3 (142-424); Red Blood Count 5.09 M/mm3 (4.60-6.20); Red Cell Distribution Width 13.3 % (11.5-17.5); White Blood Count 9.3 K/mm3 (4.8-10.8)
[2024-05-27 17:30] LABS: Creatine Kinase 36 U/L (55-170)
[2024-05-27 17:50] LABS: Erythrocyte Sedimentation Rate 8 mm/hr (0-15)
== END 2024-05-27 23:59 | disposition home or self-care (01) ==
LOC: LAB.DROPOF 17:30
PROVIDERS: PCP Internal Medicine; Visit Provider Internal Medicine
DX: M79.10 Myalgia, unspecified site (principal)
CPT/HCPCS: 82550; 85025; 85651

== ENCOUNTER 2024-06-10 07:24 | Outpatient (CLI) | payer OTHER, SELFPAY ==
--- NOTE | 2024-06-10 07:24 | MR_ITS ---
FINAL REPORT CLINICAL HISTORY: Low back pain, bilateral leg pain COMPARISON: CT examination of the lumbar spine dated 03/20/2022 FINDINGS: Multiplanar MR imaging of the lumbar spine was performed without contrast. There is motion on many sequences which limits overall image quality. On the sagittal T2-weighted images, disc degeneration is present at the L4-5 level.. The vertebral alignment is normal. There is no evidence of fracture. No bony mass is identified. The conus has an unremarkable appearance. No significant canal stenosis is identified. L1-2: No significant central canal stenosis or neuroforaminal narrowing. L2-3: No significant central canal stenosis or neuroforaminal narrowing. L3-4: No significant central canal stenosis or neuroforaminal narrowing. L4-5: An annular bulge is present with a left paracentral annular tear and disc protrusion. There is left lateral recess stenosis, and left L5 and possibly right L5 nerve root impingement. There is mild right and moderate left neuroforaminal narrowing. L5-S1: An annular bulge is present with no significant central canal stenosis or neuroforaminal narrowing. Note is made of spurring of the sacroiliac joints, left greater than right, with anterior fusion of the left SI joint. IMPRESSION: Degenerative change primarily at the L4-5 level, as described. Spurring of the sacroiliac joints, greater on the left than on the right. The left SI joint is fused anteriorly. Reviewed, Interpreted and Dictated by Erick Watt III, MD Transcribed by Kerrie White Authenticated and [facility]
== END 2024-06-10 23:59 | disposition home or self-care (01) ==
LOC: RAD 07:24
PROVIDERS: PCP Internal Medicine; Visit Provider Internal Medicine
DX: M48.061 Spinal stenosis, lumbar region without neurogenic claudication (principal); M79.604 Pain in right leg; M79.605 Pain in left leg; M79.10 Myalgia, unspecified site
CPT/HCPCS: 72148

== ENCOUNTER 2024-07-15 13:07 | Outpatient (POV) | payer OTHER, SELFPAY ==
--- NOTE | 2024-07-15 13:22 | EXP.PAIN.OV ---
HPI Data of Consult Patient: new to practice Consult date: 07/15/24 Requesting Physician: Krys Schaefer APRN Primary Care Provider: Richard Love MD Consult Narrative Reason for consult: Low back pain, bilateral leg pain History of present illness: Mr. Layton is a 44 year old male who presents today as a new patient. He is a referral from Dr. Love's office. Today he rates his pain a 6 out of 10. Patient states his pain is all across to his low back with radiating symptoms into his bilateral lower extremities. Patient does state this is been going on for approximately 4 months unrelated to any specific trauma or injury. He does state in the past he has hurt his back from time to time but this is just came on on its own. He does state that he has tingling sensations in his legs feel like they have just been beaten . He states the pain is constant and interferes with his ability perform activities of daily living such as cooking and cleaning. Patient has tried conservative therapy including oral medications, heat and ice and topicals with minimal relief. Patient has completed physical therapy just 2 months ago and had no additional changes to his overall symptoms. Patient has also continued his at home stretching exercise that was physician guided with no additional relief. Patient states that the [id number] Tylenol and ibuprofen make no changes. He is interested in any help we may be able to provide. Patient denies any surgery or injection history. His Odell has been reviewed and is appropriate. CC: Krys Schaefer APRN [facility] Disclaimer: The information contained in this section may have been updated after the patient was seen, as this information can be updated by other users. Medical History Abnormal EKG Family history of heart disease Tobacco dependence syndrome Dyspnea Chest pain Surgical History Hx of arthroscopy of right knee Family History Other Family history of cancer Family history of myocardial infarction Hx of arthroscopy of right knee Social History Smoking Status: Current every day smoker alcohol intake: never substance use type: unknown current occupational status: employed Travel in the last 8 weeks: None household members: spouse and children housing: house lives independently: No marital status: number of children: 3 education level: high school service: No alf: No current occupation: [employer] current occupational exposures/hazards: No caffeine: Yes special cornel needs: No agree to transfusion: No do you feel safe at home: Yes victim of physical abuse: No victim of emotional abuse: No victim of sexual abuse: No would you like helpful sources: No Review of Systems Review of Systems Review of systems:: pertinent systems reviewed and negative unless documented below Review of systems (narrative): Review of Systems: General: No recent weight changes, no fever, no sleep disturbances Respiratory: No cough, no shortness of air, no recurring pulmonary infections Cardiovascular/peripheral vascular: No chest pain, no palpitations, no edema, no shortness of breath Gastrointestinal: No new onset incontinence, normal bowel movements reported Genitourinary: No new onset incontinence Musculoskeletal: Low back pain, bilateral leg pain Psychiatric: [Normal mood/affect] Neurological: [Denies weakness in extremities], [denies balance issues] Meds Home Medications and Allergies Home Medications ?Medication ?Instructions ?Recorded ?Confirmed ?Type levothyroxine 175 mcg tablet See Rx Instructions .Route 07/12/24 Rx .COMPLEX #90 caps omeprazole 40 mg capsule,delayed See Rx Instructions .Route 07/12/24 Rx release .COMPLEX #90 caps New Prescriptions to Start Prescriptions: Allergies Allergy/AdvReac Type Severity Reaction Status Date / Time Penicillins Allergy SWELLING Verified 05/27/24 16:05 Objective Narrative: Physical Exam: General: Alert and oriented x3, no acute distress, pleasant and cooperative Lungs: Respirations even and unlabored, symmetrical chest expansion Eyes: PERRL Musculoskeletal: Flexion and extension of lumbar [spine] somewhat guarded secondary to pain, [antalgic gait noted] extreme point tenderness lower lumbar spine Neurological: Speech clear, no gross sensory deficit Additional findings Additional findings: FINDINGS: Multiplanar MR imaging of the lumbar spine was performed without contrast. There is motion on many sequences which limits overall image quality. On the sagittal T2-weighted images, disc degeneration is present at the L4-5 level.. The vertebral alignment is normal. There is no evidence of fracture. No bony mass is identified. The conus has an unremarkable appearance. No significant canal stenosis is identified. L1-2: No significant central canal stenosis or neuroforaminal narrowing. L2-3: No significant central canal stenosis or neuroforaminal narrowing. L3-4: No significant central canal stenosis or neuroforaminal narrowing. L4-5: An annular bulge is present with a left paracentral annular tear and disc protrusion. There is left lateral recess stenosis, and left L5 and possibly right L5 nerve root impingement. There is mild right and moderate left neuroforaminal narrowing. L5-S1: An annular bulge is present with no significant central canal stenosis or neuroforaminal narrowing. Note is made of spurring of the sacroiliac joints, left greater than right, with anterior fusion of the left SI joint. IMPRESSION: Degenerative change primarily at the L4-5 level, as described. Spurring of the sacroiliac joints, greater on the left than on the right. The left SI joint is fused anteriorly. Reviewed, Interpreted and Dictated by Erick Watt III, MD Transcribed by Kerrie White Authenticated and [facility] Assessment and Plan *Assessment and plan (1) Degenerative joint disease (DJD) of lumbar spine: Status: Acute Category: Medical Code(s): M47.816 - Spondylosis without myelopathy or radiculopathy, lumbar region (2) Lumbar spinal stenosis: Status: Acute Category: Medical Code(s): M48.061 - Spinal stenosis, lumbar region without neurogenic claudication (3) Bilateral leg pain: Status: Acute Category: Medical Code(s): M79.604 - Pain in right leg; M79.605 - Pain in left leg Plan Patient is experiencing significant pain throughout his low back with radiating symptoms down into his bilateral lower extremities with tingling sensations. Patient did have extreme point tenderness along his lower lumbar spine during today's visit with palpation. I did discuss with the patient that he may benefit from lumbar epidural steroid injection. Risk and benefits were discussed with the patient and he would like to proceed forward with this plan of care. Patient has tried and failed conservative therapy including recent physical therapy and continued at home stretching exercise for longer than 6 weeks. Patient will be scheduled for an LESI L4-L5 under fluoroscopy. Patient is not on any blood thinners. Patient has been instructed to contact the clinic with any concerns before the next appointment. Dr. Burleson has reviewed this note and agrees with this plan of care. This note was dictated using voice recognition software and make contain errors or omissions. All injections are used with Lidocaine or Bupivacaine and Depo Medrol.
[2024-07-15 15:09] VITALS: BP 126/66; PULSE 67; RESP 18; O2SAT 97; BMI 26.7
== END 2024-07-15 23:59 | disposition home or self-care (01) ==
LOC: SC.PAIN 13:08
PROVIDERS: PCP Internal Medicine; Visit Provider Nurse Practitioner Family
DX: M47.816 Spondylosis without myelopathy or radiculopathy, lumbar region (principal); M48.061 Spinal stenosis, lumbar region without neurogenic claudication; M79.604 Pain in right leg; M79.605 Pain in left leg; Z73.89 Other problems related to life management difficulty; F17.210 Nicotine dependence, cigarettes, uncomplicated
CPT/HCPCS: 99202; G0463

== ENCOUNTER 2024-08-03 13:16 | Day surgery (SDC) | payer OTHER, SELFPAY ==
[2024-08-03 13:40] VITALS: BP 111/69; BP 118/81; BP 126/77; PULSE 63; PULSE 65; RESP 16; TEMP 36.6; O2SAT 96; O2SAT 98; BMI 26.7
[2024-08-03] MEDS: methylPREDNISolone ACETATE 80MG/ML VIAL 80 MG (13:40)
--- NOTE | 2024-08-03 13:46 | EXP.PAIN.PRO ---
Procedure Date: 08/03/24 Time: 13:35 Anesthesiologist:: Teofilo Olsen CRNA Complications:: None Pre-procedure Diagnosis:: Degenerative disc lumbar spine multilevels. Lumbar radiculopathy. Post-procedure Diagnosis:: Same. Indications for Procedure:: Patient is a pleasant 44-year-old male comes our clinic today for a lumbar epidural steroid injection at the L4-5 level. Patient reports low back pain as well as bilateral hip and leg radicular symptoms to the knees. He rates his pain 8/10. He describes difficulty with ambulation due to the bilateral leg radicular symptoms. Procedure Details:: Procedure: Lumbar epidural steroid injection under fluoroscopy Informed consent was obtained and the risks and benefits of the procedure were explained to the patient. The patient was taken to the procedure room and noninvasive monitors placed, including noninvasive blood pressure cuff and pulse oximeter. The back was viewed using C-arm Fluoroscopy and prepped using Chloraprep as a cleansing solution and the L4-L5 interspace was palpated. Skin and subcutaneous tissues were anesthetized using lidocaine 1.5% and a 25-gauge needle. After this, an 18-gauge Touhy epidural needle was placed into the L4-L5 interspace and advanced using fluoroscopic guidance and loss of resistance to air until the epidural space was encountered. After confirmation of needle placement in the epidural space, with dye, a solution containing normal saline, 3 mL and Depo-Medrol 80 mg were incrementally injected into the lumbar epidural space. The patient tolerated the procedure well with no complications. The patient was observed in the Pain Clinic and then discharged home neurologically intact. Plan and Disposition:: Patient was discharged without incident.
== END 2024-08-03 14:00 | disposition home or self-care (01) ==
PROVIDERS: PCP Internal Medicine; Visit Provider Nurse Anesthetist, Certified Registered
DX: M51.16 Intervertebral disc disorders with radiculopathy, lumbar region (principal)
CPT/HCPCS: 62323; J1010

== ENCOUNTER 2024-08-26 11:22 | Outpatient (POV) | payer OTHER, SELFPAY ==
--- NOTE | 2024-08-26 12:05 | A.OFFVIS_ITS ---
[facility] Disclaimer: The information contained in this section may have been updated after the patient was seen, as this information can be updated by other users. Medical History Abnormal EKG Family history of heart disease Tobacco dependence syndrome Dyspnea Chest pain Surgical History Hx of arthroscopy of right knee Family History Other Family history of cancer Family history of myocardial infarction Hx of arthroscopy of right knee Social History Smoking Status: Current every day smoker alcohol intake: never substance use type: unknown current occupational status: employed Travel in the last 8 weeks: None household members: spouse and children housing: house lives independently: No marital status: number of children: 3 education level: high school service: No mcfp: No current occupation: [employer] (formerly [employer] current occupational exposures/hazards: No caffeine: Yes special cornel needs: No agree to transfusion: No do you feel safe at home: Yes victim of physical abuse: No victim of emotional abuse: No victim of sexual abuse: No would you like helpful sources: No PM Subjective & Objective Subjective Subjective:: Patient is a pleasant 44-year-old male who presents today for follow-up of lumbar epidural steroid injection L4-L5 on 08/03/2024. Today he rates his pain a 6 out of 10. Patient denies any new trauma or injury. He does state that he did get about 50% relief following this injection however it only lasted about 2 days. He does state that he felt like he noticed the most significant difference with the numbness and tingling down into his lower extremities. He does however state that he is back to his baseline today. Patient does state that he still has the chronic pain throughout his low back with numbness. He does state the pain interferes with his ability perform activities of daily living such as cooking and cleaning. Patient does state that he does not do his great on taking oral medications and that he is even on a thyroid pill that he he will sometimes not take. Patient does state that he is still interested in additional options. His Odell has been reviewed and is appropriate. Review of Systems: General: No recent weight changes, no fever, no sleep disturbances Respiratory: No cough, no shortness of air, no recurring pulmonary infections Cardiovascular/peripheral vascular: No chest pain, no palpitations, no edema, no shortness of breath Gastrointestinal: No new onset incontinence, normal bowel movements reported Genitourinary: No new onset incontinence Musculoskeletal: Low back pain Psychiatric: [Normal mood/affect] Neurological: [Denies weakness in extremities], [denies balance issues] Pain at rest (0-10 scale): 6 Objective Objective:: Physical Exam: General: Alert and oriented x3, no acute distress, pleasant and cooperative Lungs: Respirations even and unlabored, symmetrical chest expansion Eyes: PERRL Musculoskeletal: Flexion and extension of lumbar [spine] somewhat guarded secondary to pain, [antalgic gait noted] point tenderness along bilateral SIs with positive bilateral Lawanda's, Kizzy's, Gaenslen's, compression and distraction exam Neurological: Speech clear, no gross sensory deficit Has patient had previous pain injection?: Yes Percent improvement in pain since last injection: 50% Conservative treatment options previously tried: Home exercise plan Length of treatment: Longer than 12 weeks Meds Home Medications and Allergies Home Medications ?Medication ?Instructions ?Recorded ?Confirmed ?Type levothyroxine 175 mcg tablet See Rx Instructions .Route 07/12/24 08/23/24 Rx .COMPLEX #90 caps omeprazole 40 mg capsule,delayed See Rx Instructions .Route 07/12/24 08/23/24 Rx release .COMPLEX #90 caps erythromycin 5 mg/gram (0.5 %) eye 0.5 inch ophthalmic (eye) TID #3.5 08/23/24 08/23/24 Rx ointment grams New Prescriptions to Start Prescriptions: Allergies Allergy/AdvReac Type Severity Reaction Status Date / Time Penicillins Allergy SWELLING Verified 08/23/24 09:04 Assessment and Plan *Assessment and plan (1) Sacroiliitis: Status: Acute Category: Medical Code(s): M46.1 - Sacroiliitis, not elsewhere classified Plan I did discuss with the patient that he may benefit from SI injections due to his point tenderness along his SI joints and a positive Lawanda's, Kizzy's, Gaenslen's, compression and distraction exam. At this time he would like to wait. I will order the patient a compounded cream and have him follow-up in 1 month. Patient agrees with this plan of care. Patient has been instructed to contact the clinic with any concerns before the next appointment. Dr. Burleson has reviewed this note and agrees with this plan of care. This note was dictated using voice recognition software and make contain errors or omissions. All injections are used with Lidocaine or Bupivacaine and Depo Medrol.
[2024-08-26 13:43] VITALS: BP 111/74; PULSE 64; RESP 18; O2SAT 97; BMI 26.7
== END 2024-08-26 23:59 | disposition home or self-care (01) ==
LOC: SC.PAIN 11:22
PROVIDERS: PCP Internal Medicine; Visit Provider Nurse Practitioner Family
DX: M46.1 Sacroiliitis, not elsewhere classified (principal); F17.210 Nicotine dependence, cigarettes, uncomplicated; Z73.89 Other problems related to life management difficulty
CPT/HCPCS: 99212; G0463

== ENCOUNTER 2024-09-21 09:55 | Outpatient (CLI) | payer OTHER, SELFPAY ==
[2024-09-21 13:53] LABS: Alanine Aminotransferase 15 U/L (12-78); Albumin Level 4.2 g/dl (3.5-5.0); Albumin/Globulin Ratio 1.6 (1.1-1.8); Alkaline Phosphatase 84 U/L (38-126); Anion Gap 12.2 mEq/L (5-15); Aspartate Amino Transferase 25 U/L (17-59); Bilirubin,Total 0.7 mg/dl (0.2-1.3); Blood Urea Nitrogen 10 mg/dl (9-20); Calcium 9.1 mg/dl (8.4-10.2); Carbon Dioxide 26 mmol/L (22.0-30.0); Chloride 105 mmol/L (98-107); Chol/HDL Ratio 7.2 (1-3.5); Cholesterol 282 mg/dl (140-200); Estimated Glomerular Filt Rate 92 ml/min (>60); GFR (African American) 111 ML/MIN (>60); Globulin 2.6 g/dL (1.3-3.2); Glucose 78 mg/dl (74-100); HDL Cholesterol 39 mg/dl (40-60); Potassium 4.2 mmoL/L (3.5-5.1); Sodium 139 mmol/L (136-145); Total Protein,Serum 6.8 g/dl (6.3-8.2); Triglycerides 113 mg/dl (30-150); VLDL Cholesterol 23 mg/dL (0-40)
[2024-09-21 14:04] LABS: Direct LDL Cholesterol 224.44 mg/dL (100-129)
[2024-09-21 14:23] LABS: Thyroid Stimulating Hormone 9.31 uIU/mL (0.465-4.68)
== END 2024-09-21 23:59 | disposition home or self-care (01) ==
LOC: LAB.DROPOF 09-22 06:57
PROVIDERS: PCP Internal Medicine; Visit Provider Internal Medicine
DX: M54.40 Lumbago with sciatica, unspecified side (principal); M48.061 Spinal stenosis, lumbar region without neurogenic claudication; M47.816 Spondylosis without myelopathy or radiculopathy, lumbar region; Z86.39 Personal history of other endocrine, nutritional and metabolic disease; E03.9 Hypothyroidism, unspecified; E78.5 Hyperlipidemia, unspecified
CPT/HCPCS: 80053; 80061; 84443

== ENCOUNTER 2024-09-30 09:31 | Outpatient (POV) | payer OTHER, SELFPAY ==
[2024-09-30 10:04] VITALS: BP 120/81; PULSE 66; RESP 14; O2SAT 100; BMI 26.7
--- NOTE | 2024-09-30 10:12 | A.OFFVIS_ITS ---
[facility] Disclaimer: The information contained in this section may have been updated after the patient was seen, as this information can be updated by other users. Medical History Abnormal EKG Family history of heart disease Tobacco dependence syndrome Dyspnea Chest pain Surgical History Hx of arthroscopy of right knee Family History Other Family history of cancer Family history of myocardial infarction Hx of arthroscopy of right knee Social History Smoking Status: Current every day smoker alcohol intake: never substance use type: unknown current occupational status: employed Travel in the last 8 weeks: None household members: spouse and children housing: house lives independently: No marital status: number of children: 3 education level: high school service: No long-term: No current occupation: [employer] current occupational exposures/hazards: No caffeine: Yes special cornel needs: No agree to transfusion: No do you feel safe at home: Yes victim of physical abuse: No victim of emotional abuse: No victim of sexual abuse: No would you like helpful sources: No PM Subjective & Objective Subjective Subjective:: Patient is a pleasant 44-year-old male who presents today for worsening pain. Today he rates his pain a 7 out of 10. Patient states that he is still been experiencing chronic and severe pain across his low back and going into his upper thighs. Patient describes this as an aching sensation that is worse with certain positions. Patient states that prolonged standing walking or sitting seem to really aggravate his overall symptoms. Patient states that he frequently has to change positions due to the pain. He does state it is interfering with his ability to perform activities of daily living such as cooking and cleaning. At our last visit we did discuss SI injections however at that time he wanted to wait. Patient does also state that he got the compounded cream however it seemed to do minimal for his overall low back issues. Patient has tried and failed conservative therapy including continued at home stretching exercise for longer than 12 weeks. His Odell has been reviewed and is appropriate. Review of Systems: General: No recent weight changes, no fever, no sleep disturbances Respiratory: No cough, no shortness of air, no recurring pulmonary infections Cardiovascular/peripheral vascular: No chest pain, no palpitations, no edema, no shortness of breath Gastrointestinal: No new onset incontinence, normal bowel movements reported Genitourinary: No new onset incontinence Musculoskeletal: Low back pain, buttocks pain, upper thigh pain Psychiatric: [Normal mood/affect] Neurological: [Denies weakness in extremities], [denies balance issues] Pain at rest (0-10 scale): 7 Objective Objective:: Physical Exam: General: Alert and oriented x3, no acute distress, pleasant and cooperative Lungs: Respirations even and unlabored, symmetrical chest expansion Eyes: PERRL Musculoskeletal: Flexion and extension of lumbar [spine] somewhat guarded secondary to pain, [antalgic gait noted] extreme point tenderness along bilateral SIs with positive bilateral Lawanda's, Kizzy's, Gaenslen's, compression and distraction exam Neurological: Speech clear, no gross sensory deficit Has patient had previous pain injection?: No Conservative treatment options previously tried: Home exercise plan Length of treatment: Longer than 12 weeks Meds Home Medications and Allergies Home Medications ?Medication ?Instructions ?Recorded ?Confirmed ?Type omeprazole 40 mg capsule,delayed See Rx Instructions .Route 07/12/24 09/30/24 Rx release .COMPLEX #90 caps levothyroxine 200 mcg tablet 200 mcg PO DAILY #90 tabs 09/21/24 09/30/24 Rx New Prescriptions to Start Prescriptions: Allergies Allergy/AdvReac Type Severity Reaction Status Date / Time Penicillins Allergy SWELLING Verified 09/21/24 09:17 Assessment and Plan *Assessment and plan (1) Sacroiliitis: Status: Acute Category: Medical Code(s): M46.1 - Sacroiliitis, not elsewhere classified Plan Patient is experiencing worsening pain along the low back and bilateral hips. They did have limited range of motion of the lumbar spine along with extreme point tenderness along bilateral SI joints and a positive bilateral Lawanda's, Kizzy's, Gaenslen's, compression and distraction exam. I did discuss with the patient that I do believe they would benefit from bilateral SI injections. Risk and benefits were discussed with the patient and they would like to proceed forward with this option. Patient has tried and failed conservative therapy including continued at home stretching exercise for longer than 12 weeks. Patient will be scheduled for bilateral SI injections under fluoroscopy. Patient has been instructed to contact the clinic with any concerns before the next appointment. Dr. Burleson has reviewed this note and agrees with this plan of care. This note was dictated using voice recognition software and make contain errors or omissions. All injections are used with Lidocaine or Bupivacaine and Depo Medrol.
== END 2024-09-30 23:59 | disposition home or self-care (01) ==
LOC: SC.PAIN 09:32
PROVIDERS: PCP Internal Medicine; Visit Provider Nurse Practitioner Family
DX: M46.1 Sacroiliitis, not elsewhere classified (principal); F17.210 Nicotine dependence, cigarettes, uncomplicated; Z73.89 Other problems related to life management difficulty
CPT/HCPCS: 99212; G0463

== ENCOUNTER 2024-10-26 13:31 | Day surgery (SDC) | payer OTHER, SELFPAY ==
[2024-10-26 14:04] VITALS: BP 127/69; PULSE 63; RESP 16; TEMP 36.4; O2SAT 95; BMI 26.7
[2024-10-26 14:21] VITALS: BP 117/75; PULSE 68; RESP 16; TEMP 36.5; O2SAT 97
--- NOTE | 2024-10-26 14:37 | P.PCN_ITS ---
Procedure Date: 10/26/24 Time: 14:15 Anesthesiologist:: Teofilo Olsen CRNA Complications:: None Pre-procedure Diagnosis:: Bilateral sacroiliitis Post-procedure Diagnosis:: Same Indications for Procedure:: Patient is a very pleasant 44-year-old male who comes our clinic today for bilateral sacroiliac joint injection cortisone and local anesthetic. Patient describes low lumbar back pain off the midline bilaterally. Bilateral posterior hip pain. He reports difficulty transitioning from sitting to standing. Difficulty with standing for any length of time. He rates his pain 8/10. Procedure Details:: Procedure: Bilateral sacroiliac joint injections under fluoroscopy Informed consent was obtained and the risks and benefits of the procedure were explained to the patient.~ The patient was taken to the procedure room and noninvasive monitors were placed including a noninvasive blood pressure cuff and pulse oximeter.~ The patient was placed prone on the procedure table. Both hips were cleansed using Betadine as a cleansing solution. C-arm fluoroscopy was used to view the right sacroiliac joint.~ The skin and subcutaneous tissues were anesthetized using lidocaine 1.5% and a 25-gauge needle.~ After this, a 22-gauge spinal needle was inserted under fluoroscopic guidance into the inferior aspect of the right sacroiliac joint.~ Omnipaque dye was injected and good spread was seen throughout the joint.~ After this, approximately 5 mL of bupivacaine, 0.25% and Depo-Medrol, 40 mg was incrementally injected into the right sacroiliac joint. We then moved to the left sacroiliac joint.~ The skin and subcutaneous tissues were anesthetized using lidocaine 1.5% and a 25-gauge needle.~ After this, a 22- gauge spinal needle was inserted under fluoroscopic guidance into the inferior aspect of the left sacroiliac joint.~ Omnipaque dye was injected and good spread was seen throughout the joint. After this, approximately 5 mL of bupivacaine, 0.25% and Depo-Medrol, 40 mg was incrementally injected into the left sacroiliac joint.~ The patient tolerated the procedure well with no complications. The patient was observed in the Pain Clinic and then was discharged home neurologically intact. Plan and Disposition:: Patient was discharged without incident.
[2024-10-26] MEDS: LIDOCAINE 1% 5ML PF VIAL 5 ML (15:10)
[2024-10-26 15:11] VITALS: BP 137/74; PULSE 64; RESP 18; O2SAT 95
[2024-10-26] MEDS: BUPIVACAINE 0.25% 10ML INJ 25 MG IJ (15:11)
[2024-10-26 15:12] VITALS: BP 137/74; PULSE 64; RESP 18; O2SAT 95
== END 2024-10-26 14:21 | disposition home or self-care (01) ==
LOC: SC.PAINP 13:32
PROVIDERS: PCP Internal Medicine; Visit Provider Nurse Anesthetist, Certified Registered
DX: M46.1 Sacroiliitis, not elsewhere classified (principal)
CPT/HCPCS: 27096; G0260; J1010

== ENCOUNTER 2024-11-10 13:44 | Outpatient (POV) | payer OTHER, SELFPAY ==
--- NOTE | 2024-11-10 13:57 | EXP.PAIN.SOA ---
[facility] Disclaimer: The information contained in this section may have been updated after the patient was seen, as this information can be updated by other users. Medical History Abnormal EKG Family history of heart disease Tobacco dependence syndrome Dyspnea Chest pain Surgical History Hx of arthroscopy of right knee Family History Other Family history of cancer Family history of myocardial infarction Hx of arthroscopy of right knee Social History Smoking Status: Current every day smoker alcohol intake: never substance use type: unknown current occupational status: other Travel in the last 8 weeks: None household members: spouse and children housing: house lives independently: No marital status: number of children: 3 education level: high school service: No jail: No current occupation: [employer] current occupational exposures/hazards: No caffeine: Yes special cornel needs: No agree to transfusion: No do you feel safe at home: Yes victim of physical abuse: No victim of emotional abuse: No victim of sexual abuse: No would you like helpful sources: No PM Subjective & Objective Subjective Subjective:: Patient is a pleasant 44-year-old male who presents today for follow-up of bilateral SI injections on 10/26/2024. Today he rates his pain a 9 out of 10. He denies any new trauma or injury. He does state that the injection did help while he was numbed up and that he really did not have any pain at that point however as soon as this wore off the pain felt worse and was very sore. He states that he still has the chronic low back pain that does seem to radiate with numbness into his upper legs however denies any radiating symptoms down past his knees. Patient states that it is constant and does interfere with his ability perform activities of daily living such as cooking and cleaning. Patient has now tried a lumbar epidural from our office that did provide about 50% improvement however only lasted 2 days and now the SI injections that just lasted while the numbing medication was working. Patient states that he really does not want to try any additional injections. His Odell has been reviewed and is appropriate. Review of Systems: General: No recent weight changes, no fever, no sleep disturbances Respiratory: No cough, no shortness of air, no recurring pulmonary infections Cardiovascular/peripheral vascular: No chest pain, no palpitations, no edema, no shortness of breath Gastrointestinal: No new onset incontinence, normal bowel movements reported Genitourinary: No new onset incontinence Musculoskeletal: Low back pain Psychiatric: [Normal mood/affect] Neurological: [Denies weakness in extremities], [denies balance issues] Pain at rest (0-10 scale): 9 Objective Objective:: Physical Exam: General: Alert and oriented x3, no acute distress, pleasant and cooperative Lungs: Respirations even and unlabored, symmetrical chest expansion Eyes: PERRL Musculoskeletal: Flexion and extension of lumbar [spine] somewhat guarded secondary to pain Neurological: Speech clear, no gross sensory deficit Has patient had previous pain injection?: Yes Percent improvement in pain since last injection: No pain while numbing medication was working Conservative treatment options previously tried: Home exercise plan Length of treatment: Longer than 12 weeks Meds Home Medications and Allergies Home Medications ?Medication ?Instructions ?Recorded ?Confirmed ?Type omeprazole 40 mg capsule,delayed See Rx Instructions .Route 07/12/24 10/26/24 Rx release .COMPLEX #90 caps levothyroxine 200 mcg tablet 200 mcg PO DAILY #90 tabs 09/21/24 10/26/24 Rx New Prescriptions to Start Prescriptions: Allergies Allergy/AdvReac Type Severity Reaction Status Date / Time Penicillins Allergy SWELLING Verified 09/21/24 09:17 Assessment and Plan *Assessment and plan (1) Sacroiliitis: Status: Acute Category: Medical Code(s): M46.1 - Sacroiliitis, not elsewhere classified (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 I did review over with the patient that his symptoms are still very consistent with spinal stenosis with neurogenic claudication symptoms. Patient does state that he does get more improvement when he stands up and leans forward. I did discuss with the patient that we can try additional injections or even a intrathecal pain pump trial in the future I will send him for referral to Dr. Carmona for evaluation of his degenerative disc and spinal stenosis with possible nerve impingement at the L4-L5 level. Patient agrees with this plan of care. Patient denies any heart or kidney issues. I will send in a 2-week dose of methocarbamol 500 mg 3 times daily as needed and diclofenac 75 mg twice daily. Patient was counseled to discontinue all other NSAIDs while taking this medication and to take it with food to minimize GI upset. Patient has been instructed to contact the clinic with any concerns before the next appointment. Dr. Burleson has reviewed this note and agrees with this plan of care. This note was dictated using voice recognition software and make contain errors or omissions. All injections are used with Lidocaine, Bupivacaine and Depo Medrol. Occasionally urine drug screen is needed to verify patient's compliance with our office pain contract. This is ordered based off specific treatments related to chronic pain with the potential to abuse certain medications.
[2024-11-10 15:02] VITALS: BP 125/81; PULSE 68; RESP 16; O2SAT 98; BMI 26.7
== END 2024-11-10 23:59 | disposition home or self-care (01) ==
PROVIDERS: PCP Internal Medicine; Visit Provider Nurse Practitioner Family
DX: M46.1 Sacroiliitis, not elsewhere classified (principal); M47.816 Spondylosis without myelopathy or radiculopathy, lumbar region; M48.061 Spinal stenosis, lumbar region without neurogenic claudication; F17.210 Nicotine dependence, cigarettes, uncomplicated; Z73.89 Other problems related to life management difficulty
CPT/HCPCS: 99212; G0463

== ENCOUNTER 2025-03-15 15:00 | Outpatient (CLI) | payer OTHER, SELFPAY ==
[2025-03-15 16:43] LABS: Basophils % 0.5 % (0.1-2.0); Eosinophils # 0.3 Kmm3 (0.0-0.4); Eosinophils % 3.2 % (0.1-12.0); Hematocrit 48.2 % (42.0-52.0); Immature Granulocytes # 0.02 10^3uL; Immature Granulocytes % 0.2 %; Lymphocytes # 3.7 K/mm3 (0.7-4.5); Lymphocytes % 45.3 % (10-50); Mean Corpuscular HGB Conc 33.2 g/dL (31.8-35.4); Mean Corpuscular Hemoglobin 30.9 pg (27.0-31.2); Mean Corpuscular Volume 93.2 fl (80-94); Mean Platelet Volume 10.9 fl (7.4-10.4); Monocytes # 0.5 K/mm3 (0.1-1.0); Monocytes % 6.1 % (1.7-9.3); Neutrophils # 3.7 K/mm3 (1.8-7.8); Neutrophils % 44.7 % (37.0-80.0); Nucleated Red Blood Cells # 0 10^3/uL; Nucleated Red Blood Cells % 0 %; Platelet Count 255 K/mm3 (142-424); Red Blood Count 5.17 M/mm3 (4.60-6.20); Red Cell Distribution Width 12.2 % (11.5-17.5); Red Cell Distribution Width-SD 42.2 fL; White Blood Count 8.2 K/mm3 (4.8-10.8)
[2025-03-15 18:01] LABS: Alanine Aminotransferase 22 U/L (12-78); Albumin Level 3.9 g/dl (3.5-5.0); Albumin/Globulin Ratio 1.5 (1.1-1.8); Alkaline Phosphatase 83 U/L (38-126); Anion Gap 6.4 mEq/L (5-15); Aspartate Amino Transferase 25 U/L (17-59); Bilirubin,Total 0.4 mg/dl (0.2-1.3); Blood Urea Nitrogen 7 mg/dl (9-20); Carbon Dioxide 28 mmol/L (22.0-30.0); Chloride 103 mmol/L (98-107); Chol/HDL Ratio 5.9 (1-3.5); Cholesterol 196 mg/dl (140-200); Estimated Glomerular Filt Rate 106 ml/min (>60); GFR (African American) 128 ML/MIN (>60); Globulin 2.6 g/dL (1.3-3.2); Glucose 71 mg/dl (74-100); HDL Cholesterol 33 mg/dl (40-60); Potassium 4.4 mmoL/L (3.5-5.1); Sodium 133 mmol/L (136-145); Total Protein,Serum 6.5 g/dl (6.3-8.2); Triglycerides 234 mg/dl (30-150); VLDL Cholesterol 47 mg/dL (0-40)
[2025-03-15 18:11] LABS: Direct LDL Cholesterol 134.06 mg/dL (100-129)
[2025-03-15 18:29] LABS: Thyroid Stimulating Hormone 0.07 uIU/mL (0.465-4.68)
== END 2025-03-15 23:59 | disposition home or self-care (01) ==
LOC: LAB.DROPOF 22:36
PROVIDERS: PCP Internal Medicine; Visit Provider Internal Medicine
DX: M47.816 Spondylosis without myelopathy or radiculopathy, lumbar region (principal); M48.061 Spinal stenosis, lumbar region without neurogenic claudication; E78.5 Hyperlipidemia, unspecified; E03.9 Hypothyroidism, unspecified; M79.604 Pain in right leg; M79.605 Pain in left leg; Z86.39 Personal history of other endocrine, nutritional and metabolic disease
CPT/HCPCS: 80053; 80061; 84443; 85025

== ENCOUNTER 2025-09-05 16:31 | Outpatient (CLI) | payer OTHER, BC, SELFPAY ==
[2025-09-05 19:58] LABS: Alanine Aminotransferase 15 U/L (12-78); Albumin Level 4.1 g/dl (3.5-5.0); Albumin/Globulin Ratio 1.3 (1.1-1.8); Alkaline Phosphatase 82 U/L (38-126); Anion Gap 11.1 mEq/L (5-15); Aspartate Amino Transferase 23 U/L (17-59); Bilirubin,Total 0.5 mg/dl (0.2-1.3); Blood Urea Nitrogen 8 mg/dl (9-20); Calcium 9.2 mg/dl (8.4-10.2); Carbon Dioxide 26 mmol/L (22.0-30.0); Chloride 103 mmol/L (98-107); Cholesterol 208 mg/dl (140-200); Creatinine,Serum 0.90 mg/dl (0.66-1.25); Estimated Glomerular Filt Rate 92 ml/min (>60); GFR (African American) 111 ML/MIN (>60); Globulin 3.2 g/dL (1.3-3.2); Glucose 77 mg/dl (74-100); HDL Cholesterol 32 mg/dl (40-60); Potassium 4.1 mmoL/L (3.5-5.1); Sodium 136 mmol/L (136-145); Total Protein,Serum 7.3 g/dl (6.3-8.2); Triglycerides 175 mg/dl (30-150)
[2025-09-05 20:29] LABS: Thyroid Stimulating Hormone 2.27 uIU/mL (0.465-4.68)
== END 2025-09-05 23:59 | disposition home or self-care (01) ==
LOC: LAB.DROPOF 09-06 16:31
PROVIDERS: PCP Internal Medicine; Visit Provider Internal Medicine
DX: E78.5 Hyperlipidemia, unspecified (principal); E03.9 Hypothyroidism, unspecified; Z51.81 Encounter for therapeutic drug level monitoring; Z79.1 Long term (current) use of non-steroidal anti-inflammatories (NSAID)
CPT/HCPCS: 80053; 80061; 84443